=== PATIENT | female | born 1985 | race Caucasian/White ===

== ENCOUNTER 2020-11-29 11:10 | Emergency (ER) | payer OTHER ==
[2020-11-29 11:39] VITALS: BP 129/101; TEMP 98.2; BMI 33.9
[2020-11-29] MEDS ORDERED: ONDANSETRON 4 MG/2 ML VIAL IVPUSH ONE (12:05)
[2020-11-29] MEDS ORDERED: SODIUM CHLORIDE 0.9% 500 ML INFUS.BAG IV ONE (12:05)
[2020-11-29] MEDS ORDERED: LORazepam 2 MG/ML SDV VIAL IVPUSH ONE (12:45)
[2020-11-29] MEDS ORDERED: LORazepam 2 MG/ML SDV VIAL ONE (12:51)
[2020-11-29] MEDS ORDERED: ONDANSETRON 4 MG/2 ML VIAL ONE (12:51)
[2020-11-29 13:09] LABS: BASO % 0.4 % (0-2.0); EOS % 0.9 % (0-4.5); HEMATOCRIT 44.2 % (32.4-45.2); HEMOGLOBIN 15.3 GM/dL (10.7-15.3); LYMPH % 32.7 % (8-40); MCHC 34.6 g/dl (32.0-36.0); MEAN CELL VOLUME 95.3 fl (80-96); MEAN PLT VOLUME 7.6 fl (7.5-11.1); PLATELET COUNT 225 K/MM3 (134-434); RBC 4.64 M/mm3 (3.60-5.2); RDW 13.1 % (11.6-15.6); WHITE BLOOD COUNT 6.9 K/mm3 (4.0-10.0)
[2020-11-29 13:16] LABS: INR 0.9 (0.83-1.09); PROTHROMBIN TIME (PATIENT) 10.9 SEC (9.7-13.0)
[2020-11-29 13:19] LABS: ACTIVATED PTT 34.5 SECONDS (25.2-36.5)
[2020-11-29 13:44] LABS: CALCIUM 8.4 mg/dL (8.5-10.1)
[2020-11-29 13:48] LABS: CREATININE 0.7 mg/dL (0.55-1.3)
[2020-11-29 13:49] LABS: BILIRUBIN,TOTAL 0.7 mg/dL (0.2-1); TOT PROT 7.3 g/dl (6.4-8.2)
[2020-11-29 14:12] VITALS: PULSE 92
[2020-11-29 14:47] LABS: EPI CELLS 9 /uL (0-25.1); HYALINE CASTS 1 /uL (0-3.1); URINE APPEARANCE CLEAR; URINE BACTERIA >9,000 /uL (0-1359); URINE BILIRUBIN NEGATIVE (NEGATIVE); URINE COLOR YELLOW; URINE GLUCOSE (UA) NEGATIVE (NEGATIVE); URINE KETONE NEGATIVE (NEGATIVE); URINE LEUK ESTERASE TRACE (NEGATIVE); URINE NITRITE NEGATIVE (NEGATIVE); URINE PROTEIN NEGATIVE (NEGATIVE); URINE RBC 12 /uL (0-23.9); URINE UROBILINOGEN 0.2 mg/dL (0.2-1.0); URINE WBC 17 /uL (0-25.8)
== END 2020-11-29 16:02 | disposition home or self-care (01) ==
LOC: JER 11:10
PROC: 3E033NZ Introduction of Analgesics, Hypnotics, Sedatives into Peripheral Vein, Percutaneous Approach (ICD-10-PCS; principal; 2020-11-29)
PROC: 3E033GC Introduction of Other Therapeutic Substance into Peripheral Vein, Percutaneous Approach (ICD-10-PCS; 2020-11-29)
DX: R11.2 Nausea with vomiting, unspecified (principal)
CPT/HCPCS: 36415; 80053; 81003; 83690; 85025; 85610; 85730; 87086; 87186; 93005; 93010; 99284-25